=== PATIENT | male | born 1955 | race Asian ===

== ENCOUNTER → 2016-05-26 | Outpatient (CLI) | payer MEDICARE, MEDICAID ==
[~2016-05-26] MED LIST: ACET-2247 PO; ADV500 IH; ALBU90AE PO; AMLO-511 PO; AMLO2.5T PO; ATOR20TA86 PO; AUD NEB; CLON.1 PO; D-ME118S13 PO; DIPH25 PO; ERGO500044 PO; FERR-89 PO; FLUT16H NASAL; FLUT44HFA IH; HYDR-305 PO; HYDR-3965 PO; IPRA4AER IH; LANS30 PO; LISI-661 PO; LISI-662 PO; LUBI24CA2 PO; MONT10TA21 PO; OMEP20 PO; PRED10 PO; ROFL500T PO; SAXA5TAB PO; SITA25 PO; TAMS0.4C32 PO; THEO200T39 PO
== END | disposition home or self-care (01) ==
LOC: RADMN 09:27
PROVIDERS: ATTEND Internal Medicine
DX: M25.512 Pain in left shoulder (principal)
CPT/HCPCS: 73221

== ENCOUNTER 2016-07-13 06:13 | Day surgery (SDC) | payer MEDICARE, MEDICAID ==
[~2016-07-13] VITALS: Ht 167.6 cm; Wt 62.3 kg
[~2016-07-13 06:13] MED LIST changes: -ALBU90AE PO; -AMLO-511 PO; -CLON.1 PO; -D-ME118S13 PO; -ERGO500044 PO; -FERR-89 PO; -HYDR-305 PO; -LISI-662 PO; -ROFL500T PO; -TAMS0.4C32 PO
[2016-07-13] MEDS ORDERED: SODIUM CHLORIDE 0.9% 1,000 ML IV ONE ×2 (06:15→07:01)
[2016-07-13 08:12] LABS: GLUCOSE,POINT OF CARE 89 MG/DL (70-110)
[2016-07-13] MEDS ORDERED: AMLO-511 PO (08:14)
[2016-07-13] MEDS ORDERED: HYDR-305 PO (08:14)
[2016-07-13] MEDS ORDERED: LISI-662 PO (08:14)
[2016-07-13] MEDS ORDERED: ALBU90AE PO (08:20)
[2016-07-13] MEDS ORDERED: TAMS0.4C32 PO (08:20)
[2016-07-13] MEDS ORDERED: ERGO500044 PO (08:20)
[2016-07-13] MEDS ORDERED: ROFL500T PO (08:20)
[2016-07-13] MEDS ORDERED: LUBI24CA2 PO (08:23)
[2016-07-13] MEDS ORDERED: CLON.1 PO (08:23)
[2016-07-13] MEDS ORDERED: D-ME118S13 PO (08:23)
[2016-07-13] MEDS ORDERED: FERR-89 PO (08:23)
[2016-07-13] MEDS ORDERED: MethylPREDNISolone SOD SUCC 125 MG/2 ML VIAL IVP ONE (09:00)
[2016-07-13] MEDS ORDERED: MIDAZOLAM HCL 2 MG/2 ML VIAL ONE (12:00)
[2016-07-13] MEDS ORDERED: FentaNYL CITRATE-PF 100 MCG/2 ML VIAL ONE (12:00)
[2016-07-13] MEDS ORDERED: BENZOCAINE 20% 50 MCG/SPRAY 57 GM TP ONE (17:39)
[2016-07-13] MEDS ORDERED: LIDOCAINE HCL 2% 30 ML JELLY TP ONE (17:39)
[2016-07-13] MEDS ORDERED: LIDOCAINE HCL 4% 50 ML SOLUTION TP ONE (17:39)
[2016-07-13] MEDS ORDERED: ALBUTEROL SULFATE 2.5 MG/0.5 ML NEB SOLUTION NEB ONE (17:39)
[2016-07-13] MEDS ORDERED: OXYGEN THERAPY IH SCH (20:00)
== END 2016-07-13 10:35 | disposition home or self-care (01) ==
LOC: SURGERY 06:13
PROVIDERS: ATTEND Internal Medicine Critical Care Medicine
DX: J38.4 Edema of larynx (principal); B37.0 Candidal stomatitis; I10 Essential (primary) hypertension; E11.9 Type 2 diabetes mellitus without complications; Z90.5 Acquired absence of kidney
CPT/HCPCS: 31623; 31624; 71010; 82962; 87015 ×2; 87070; 87101; 87205; 87220; 88108; 88312; 93005; J2250; J2930; J3010; J7030